=== PATIENT | male | born 1990 | race Caucasian/White ===

== ENCOUNTER → 2018-09-23 | Outpatient (CLI) | payer MEDICAID ==
[~2018-09-23] MED LIST: IOPAMIDOL (ISOVUE-300) 100 ML BTL ONE
== END ==
LOC: CIMAGING 14:20
PROVIDERS: ATTEND Surgery
DX: K76.89 Other specified diseases of liver (principal); K59.00 Constipation, unspecified; R10.11 Right upper quadrant pain; R10.12 Left upper quadrant pain; R94.5 Abnormal results of liver function studies
CPT/HCPCS: 74177-PO; Q9967